=== PATIENT | male | born 1970 | race African-American/Black ===

== ENCOUNTER 2017-05-24 15:07 | Emergency (ER) | payer OTHER ==
[~2017-05-24] VITALS: Ht 172.7 cm; Wt 84.8 kg
[~2017-05-24 15:07] MED LIST: Motrin PO; PREDNISONE10 MG PO
[2017-05-24 16:54] LABS: MCH 29.5 PG (29.0-34.0); MCHC 33.3 G/DL (30.0-36.0); MCV 88.6 FL (86-99); MEAN PLAT.VOLUME 13.3 uM^3 (9.0-12.4); PLATELET COUNT 95 K/uL (156-360); RBC DIS.WIDTH-CV 12.4 % (11.8-14.6); RBC DIS.WIDTH-SD 40.4 % (39-53); RED BLOOD COUNT 4.74 M/uL (4.00-5.50); WHITE BLOOD COUNT 4.7 K/uL (4.1-10.2)
[2017-05-24 17:15] LABS: TROP-I INTERPRETATION NEGATIVE; TROPONIN-I < 0.01 ng/mL (0.0-0.30)
[2017-05-24 17:33] LABS: CHLORIDE 112 mEq/L (99-109); POTASSIUM 4.1 mEq/L (3.7-5.4); SODIUM 142 mEq/L (136-147)
[2017-05-24 17:34] LABS: GLUCOSE 114 mg/dL (70-99)
[2017-05-24 17:36] LABS: ANION GAP 8 MEQ/L (2-14)
[2017-05-24 17:38] LABS: GFR ESTIMATE (CALCULATED) > 59 mL/min/
[2017-05-24 17:39] LABS: UREA NITROGEN (BUN) 10 mg/dL (9-23)
[2017-05-24 19:51] LABS: TROP-I INTERPRETATION NEGATIVE; TROPONIN-I < 0.01 ng/mL (0.0-0.30)
[2017-05-24] MEDS ORDERED: ANTIVERT25 MG PO (20:00)
[2017-05-24 20:35] VITALS: BP 131/87
== END 2017-05-24 20:36 | disposition home or self-care (01) ==
LOC: EME 15:07
PROVIDERS: Physician Assistant Medical
DX: R42 Dizziness and giddiness (principal); E78.5 Hyperlipidemia, unspecified
CPT/HCPCS: 70450; 80048; 84484; 85027; 93005; 99281; 99285; J1200; J1885; J2765; J7030